=== PATIENT | female | born 1995 | race Two or more races ===

== ENCOUNTER 2020-11-16 06:22 | Day surgery (SDC) | payer OTHER | END 2020-11-16 10:00 | disposition home or self-care (01) | LOC: AMB-ENDOS 06:22 | PROVIDERS: ATTEND Surgery | DX: K29.80 Duodenitis without bleeding (principal); K44.9 Diaphragmatic hernia without obstruction or gangrene; Z20.822 Contact with and (suspected) exposure to COVID-19 ==